=== PATIENT | male | born 1990 | race Caucasian/White ===

== ENCOUNTER 2016-06-29 22:17 | Emergency (ER) | payer OTHER ==
[2016-06-29 22:34] VITALS: TEMP 97.4; BMI 21.2
[2016-06-29] MEDS ORDERED: PROMETHAZINE 25 MG/ML VIAL IV ONE (23:10)
[2016-06-29 23:55] LABS: MPV 9.6 fL (7.4-10.4)
[2016-06-30 00:49] LABS: SEG NEUTROPHIL 91 % (45-76)
[2016-06-30] MEDS: NS 2,000 ML IV ONE ×2 (01:12→01:14)
[2016-06-30 01:13] LABS: BLOOD UREA NITROGEN 18 MG/DL (9-20); CALCIUM 9.1 MG/DL (8.4-10.2); CALCULATED OSMOLALITY 276 MOs/Kg (270-290); CHLORIDE 102 mEq/L (98-107); GLUCOSE 125 mg/dL (70-99); SODIUM LEVEL 142 mEq/L (137-146); TOTAL PROTEIN 7.3 G/DL (6.3-8.2)
[2016-06-30 01:45] VITALS: BP 106/67; PULSE 85
[2016-06-30 01:47] LABS: LEUKOCYTES/URINE NEG (NEGATIVE); NITRITE/URINE NEG (NEGATIVE); RBC/URINE 0-2 (0-2); URINE OCCULT BLOOD NEG (NEG/TRACE); WBC/URINE 0-2 (0-2)
--- NOTE | 2016-06-30 02:32 | EDPRACDOC ---
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 PT STATES HE HAS BEEN EXPOSED TO INFLUENZA A IN THE PAST COUPLE OF DAYS. PT HAS NOT MADE ANY URINE IN THE PAST COUPLE OF HOURS PT HAS A GENETIC CONDITION WHERE HIS CK IS ELEVATED. Symptoms Occured: Reports: Spontaneous Duration: Reports: Intermittent Emesis: Reports: Bilious Recent: Reports: Contact Exposure Pain Quality: Reports: Aching Pain Severity: Mild Pain Location: Reports: Diffuse Relevant History of: Reports: Contact Exposure Associated Signs and Symptoms: Reports: Nausea, Vomiting, Diarrhea Oral Intake: Decreased Urinary Output: Decreased ED Past Medical History - History Reviewed Yes Nurses notes reviewed and agree except as marked - Patient Medical History Psychological History: Denies: Depression - Social Medical History Smoking Status: Never smoker EDM Review of Systems - Review of Systems ROS Negative Except as Marked: Yes All systems reviewed and were negative except as marked - Physical Exam Constitutional: Alert Oriented to: Time, Person, Place Last recorded Vital Signs: Last Vital Signs Temp 97.4 F L 06/29/16 22:27 Pulse 85 06/30/16 01:21 Resp 18 06/30/16 01:21 BP 106/67 06/30/16 01:21 Pulse Ox 95 06/30/16 01:21 Oxygen Pulse Oxygen Saturation 95 O2 Device Room Air Oxygen Flow Rate Fraction of Inspired Oxygen ( FIO2) - HEENT Head: Normal ( normocephalic) Eye Exam: Pale Conjunctiva Oropharynx: Membranes Dry Tympanic Membrane: Normal Nose: No Symptoms Reported (septum midline) Neck: Normal (FROM, trachea at midline) - Respiratory/Cardiovascular Respiratory: Normal - CTA (BBS clear to auscultation without adventitious sounds ) Cardiovascular: Normal (RRR without murmur, gallop or rub) - GI Auscultation: Normal (NABS) Palpation: Normal (Soft,No rebound or guarding, non distended) Tenderness: Diffuse, Mild Cespedes's Sign: Negative Rectal Exam: Deferred - Musculoskeletal Back: Normal (Non-Tender) Extremities: Normal (Normal tone, Pulses 2+ No cyanosis or edema, FROM) - Integumentary Skin: Warm, Dry, Pale Lymphatics: Normal (no adenopathy) - Neurologic Memory Impaired: Normal Motor Function: Normal (Normal tone, Pulses 2+ No cyanosis or edema, FROM) Cranial Nerve: Normal (CN II-X11 intact sensation, strength 5/5) Cerebellar: Normal Mood Description: Normal Perception: Normal - Differential Diagnosis Diarrhea Viral - Re-evaluation Re-evaluation 1 Re-evaluation Time: 02:34 (PT FEELING BETTER, TAKING PO FLUIDS AT THIS TIME) - Results 06/29/16 23:33 06/30/16 00:50 WBC 14.3 xk/uL (3.8-10.8) H 06/29/16 23:33 RBC 5.65 xM/uL (4.70-6.10) 06/29/16 23:33 Hgb 17.0 g/dL (14.0-18.0) 06/29/16 23:33 Hct 49.7 % (42-52) 06/29/16 23:33 MCV 88 fL (80-94) 06/29/16 23:33 MCH 30.0 pg (27-32) 06/29/16 23:33 MCHC 34.2 g/dl (33-36) 06/29/16 23:33 RDW 13.0 % (11.5-14.5) 06/29/16 23:33 Plt Count 128 xk/uL (130-400) L 06/29/16 23:33 MPV 9.6 fL (7.4-10.4) 06/29/16 23:33 Neut % (Auto) Cancelled 06/29/16 22:50 Lymph % (Auto) Cancelled 06/29/16 22:50 [place] % (Auto) Cancelled 06/29/16 22:50 Eos % (Auto) Cancelled 06/29/16 22:50 Baso % (Auto) Cancelled 06/29/16 22:50 Absolute Neuts (auto) Cancelled 06/29/16 22:50 Absolute Lymphs (auto) Cancelled 06/29/16 22:50 Seg Neuts % (Manual) 91 % (45-76) H 06/29/16 23:33 Band Neutrophils % 0 % (0-5) 06/29/16 23:33 Lymphocytes % (Manual) 4 % (17-44) L 06/29/16 23:33 Monocytes % (Manual) 5 % (0-10) 06/29/16 23:33 Eosinophils % (Manual) Cancelled 06/29/16 22:50 Basophils % (Manual) Cancelled 06/29/16 22:50 Metamyelocytes % Cancelled 06/29/16 22:50 Myelocytes % Cancelled 06/29/16 22:50 Promyelocytes % Cancelled 06/29/16 22:50 Absolute Neutrophils 13.01 xk/uL (1.7-8.2) H 06/29/16 23:33 Absolute Lymphocytes 0.57 xk/uL (0.65-4.75) L 06/29/16 23:33 Nucl RBC Rel Cnt (Man) Cancelled 06/29/16 22:50 Vacuolated Neuts Cancelled 06/29/16 22:50 Atypical Lymphocytes Cancelled 06/29/16 22:50 Blast Cells Cancelled 06/29/16 22:50 Toxic Granulation Cancelled 06/29/16 22:50 Dohle Bodies Cancelled 06/29/16 22:50 Platelet Estimate Norm (NORMAL) 06/29/16 23:33 RBC Morphology Norm 06/29/16 23:33 Sodium 142 mEq/L (137-146) 06/30/16 00:50 Potassium 3.7 mEq/L (3.5-5.1) 06/30/16 00:50 Chloride 102 mEq/L (98-107) 06/30/16 00:50 Carbon Dioxide 29 mMOL/L (22-33) 06/30/16 00:50 Anion Gap 15 mEq/L (8-16) 06/30/16 00:50 BUN 18 MG/DL (9-20) 06/30/16 00:50 Creatinine 0.90 MG/DL (0.66-1.25) 06/30/16 00:50 Estimated GFR (MDRD) > 60 mL/min (>=60) 06/30/16 00:50 Glucose 125 mg/dL (70-99) H 06/30/16 00:50 Calculated Osmolality 276 MOs/Kg (270-290) 06/30/16 00:50 Calcium 9.1 MG/DL (8.4-10.2) 06/30/16 00:50 Total Bilirubin 1.2 MG/DL (0.2-1.3) 06/30/16 00:50 AST 57 IU/L (17-59) 06/30/16 00:50 ALT 65 IU/L (21-72) 06/30/16 00:50 Alkaline Phosphatase 45 IU/L (38-126) 06/30/16 00:50 Creatine Kinase 1081 IU/L (55-170) H 06/30/16 00:50 Total Protein 7.3 G/DL (6.3-8.2) 06/30/16 00:50 Albumin 4.6 G/DL (3.5-5.0) 06/30/16 00:50 Urine Color Dark yellow 06/30/16 01:32 Urine Clarity Sl cldy 06/30/16 01:32 Urine pH 6.0 (5.0-8.0) 06/30/16 01:32 Ur Specific [place] 1.020 (1.003-1.035) 06/30/16 01:32 Urine Protein 1+ (NEG/TRACE) H 06/30/16 01:32 Urine Glucose (UA) Neg (NEGATIVE) 06/30/16 01:32 Urine Ketones Neg (NEGATIVE) 06/30/16 01:32 Urine Occult Blood Neg (NEG/TRACE) 06/30/16 01:32 Urine Nitrite Neg (NEGATIVE) 06/30/16 01:32 Urine Bilirubin Neg (NEGATIVE) 06/30/16 01:32 Urine Urobilinogen <2.0 MG/DL (0-1) 06/30/16 01:32 Ur Leukocyte Esterase Neg (NEGATIVE) 06/30/16 01:32 Urine RBC 0-2 (0-2) 06/30/16 01:32 Urine WBC 0-2 (0-2) 06/30/16 01:32 Urine Bacteria Few (NEG/FEW) 06/30/16 01:32 Urine Mucus Large (NEG/OCC) 06/30/16 01:32 Microbiology 06/29/16 23:10 Influenza Type A Antigen Screen - Final N/P - Naso/Pharyngeal NEGATIVE Please note: A NEGATIVE result does not exclude an influenza virus infection. It is a presumptive result and, if required, confirmation should be done using either a virus culture or an FDA-cleared influenza A&B molecular assay. ("NORMAL" value = "NEGATIVE".) Influenza Type B Antigen Screen - Final NEGATIVE Please note: A NEGATIVE result does not exclude an influenza virus infection. It is a presumptive result and, if required, confirmation should be done using either a virus culture or an FDA-cleared influenza A&B molecular assay. ("NORMAL" value = "NEGATIVE".) Lab Results 06/30/16 06/30/16 06/30/16 01:32 00:50 00:50 WBC RBC Hgb Hct MCV MCH MCHC RDW Plt Count MPV Neut % (Auto) Lymph % (Auto) [place] % (Auto) Eos % (Auto) Baso % (Auto) Absolute Neuts (auto) Absolute Lymphs (auto) Seg Neuts % (Manual) Band Neutrophils % Lymphocytes % (Manual) Monocytes % (Manual) Eosinophils % (Manual) Basophils % (Manual) Metamyelocytes % Myelocytes % Promyelocytes % Absolute Neutrophils Absolute Lymphocytes Nucl RBC Rel Cnt (Man) Vacuolated Neuts Atypical Lymphocytes Blast Cells Toxic Granulation Dohle Bodies Platelet Estimate RBC Morphology Sodium 142 Potassium 3.7 Chloride 102 Carbon Dioxide 29 Anion Gap 15 BUN 18 Creatinine 0.90 Estimated GFR (MDRD) > 60 Glucose 125 H Calculated Osmolality 276 Calcium 9.1 Total Bilirubin 1.2 AST 57 ALT 65 Alkaline Phosphatase 45 Creatine Kinase 1081 H Total Protein 7.3 Albumin 4.6 Urine Color Dark yellow Urine Clarity Sl cldy Urine pH 6.0 Ur Specific [place] 1.020 Urine Protein 1+ H Urine Glucose (UA) Neg Urine Ketones Neg Urine Occult Blood Neg Urine Nitrite Neg Urine Bilirubin Neg Urine Urobilinogen <2.0 Ur Leukocyte Esterase Neg Urine RBC 0-2 Urine WBC 0-2 Urine Bacteria Few Urine Mucus Large 06/29/16 06/29/16 23:33 22:50 WBC 14.3 H Cancelled RBC 5.65 Cancelled Hgb 17.0 Cancelled Hct 49.7 Cancelled MCV 88 Cancelled MCH 30.0 Cancelled MCHC 34.2 Cancelled RDW 13.0 Cancelled Plt Count 128 L Cancelled MPV 9.6 Cancelled Neut % (Auto) Cancelled Cancelled Lymph % (Auto) Cancelled Cancelled [place] % (Auto) Cancelled Cancelled Eos % (Auto) Cancelled Cancelled Baso % (Auto) Cancelled Cancelled Absolute Neuts (auto) Cancelled Cancelled Absolute Lymphs (auto) Cancelled Cancelled Seg Neuts % (Manual) 91 H Cancelled Band Neutrophils % 0 Cancelled Lymphocytes % (Manual) 4 L Cancelled Monocytes % (Manual) 5 Cancelled Eosinophils % (Manual) Cancelled Basophils % (Manual) Cancelled Metamyelocytes % Cancelled Myelocytes % Cancelled Promyelocytes % Cancelled Absolute Neutrophils 13.01 H Cancelled Absolute Lymphocytes 0.57 L Cancelled Nucl RBC Rel Cnt (Man) Cancelled Vacuolated Neuts Cancelled Atypical Lymphocytes Cancelled Blast Cells Cancelled Toxic Granulation Cancelled Dohle Bodies Cancelled Platelet Estimate Norm Cancelled RBC Morphology Norm Cancelled Sodium Potassium Chloride Carbon Dioxide Anion Gap BUN Creatinine Estimated GFR (MDRD) Glucose Calculated Osmolality Calcium Total Bilirubin AST ALT Alkaline Phosphatase Creatine Kinase Total Protein Albumin Urine Color Urine Clarity Urine pH Ur Specific [place] Urine Protein Urine Glucose (UA) Urine Ketones Urine Occult Blood Urine Nitrite Urine Bilirubin Urine Urobilinogen Ur Leukocyte Esterase Urine RBC Urine WBC Urine Bacteria Urine Mucus Decision Time to Discharge: 02:35 - Departure Disposition: Home Condition: Stable Final Diagnosis: Nausea and vomiting Instructions: Acute Nausea and Vomiting (ED) Education/Counseling Given To: Patient Education/Counseling Given Regarding: Diagnosis, Treatment, Prognosis, Follow Up Referrals: Prasanna Magaña MD [Staff Physician] - One Week Prescriptions: New Oseltamivir Phosphate [Tamiflu] 75 mg PO BID #10 capsule Ondansetron [Zofran Odt] 4 mg PO Q6H PRN #20 tab.rapdis PRN Reason: Nausea/Vomiting Additional Instructions: Drink sips of Gatorade every 2-3 minutes while awake. Do NOT drink large volumes of fluid at once. If you vomit, take the nausea-vomiting medicine prescribed, wait ~ 30 minutes, and restart the sipping process. Return to the Emergency Department if you think you are getting dehydrated, have persistent abdominal pain that is unrelenting, have worse or different symptoms, or any concerns. FOLLOW UP WITH PCP NEXT WEEK. RETURN TO THE ED FOR WORSENING SYMPTOMS OR CONCERNS
[2016-06-30 05:14] LABS: CPKMB RELATIVE INDEX 0.7 (0.0-2.2)
== END 2016-06-30 02:52 | disposition home or self-care (01) ==
LOC: ED 22:17
DX: R11.2 Nausea with vomiting, unspecified (principal)
CPT/HCPCS: 36415; 80053; 81001; 82550; 82553; 85007; 85027; 87804; 96361; 96374; 99284; J2550